=== PATIENT | female | born 1960 | race Caucasian/White ===

== ENCOUNTER 2017-03-28 13:51 | Emergency (ER) | payer OTHER ==
[~2017-03-28] VITALS: Ht 152.4 cm; Wt 56.2 kg
[~2017-03-28 13:51] MED LIST: DOCUSATE SODIU100 M3 PO; LEVOTHYROXINE100 MC1 PO; PERCOCET 5-3251 EACH PO; VALIUM5 M2 PO
--- NOTE | 2017-03-28 14:27 | ED UPPER/LOWER EXTREMITY COMPL ---
History of Present Illness General Chief Complaint: Lower Extremity Problems Stated Complaint: RIGHT LEG WOUND, ?INFECTION Source: patient, family Exam Limitations: no limitations Vital Signs & Intake/Output Vital Signs & Intake/Output Vital Signs Date Time Temp Pulse Resp B/P B/P Pulse O2 O2 Flow FiO2 Mean Ox Delivery Rate 03/28 1609 100.6 68 18 109/57 98 Room Air 03/28 1549 97 Room Air 03/28 1356 98.6 76 18 118/76 98 Room Air Allergies Coded Allergies: NO KNOWN ALLERGIES (09/03/16) Reconcile Medications Amoxicillin/Clavulanate Potass (Amox-Clav 875-125 MG Tablet) 875 MG-125 MG TABLET 1 TAB PO BID ANTIBIOTIC, INFECTION (Reported) Calcium Carbonate/Vitamin D3 (Caltrate 600 + D Tablet) 600 MG-800 TABLET 1 TAB PO DAILY SUPPLEMENT (Reported) Cholecalciferol (Vitamin D3) (Vitamin D) 1,000 UNIT TABLET 1 TAB PO DAILY VITAMIN SUPPORT (Reported) Levothyroxine Sodium 100 MCG TABLET 1 TAB PO QPM THYROID (Reported) Leonard-3 Fatty Acids/Fish Oil (Fish Oil 1,000 MG Capsule) 340 MG-1,000 MG CAPSULE 1 CAP PO DAILY SUPPLEMENT (Reported) Sulfamethoxazole/Trimethoprim (Sulfamethoxazole-Tmp Ds Tablet) 800 MG-160 MG TABLET 1 TAB PO BID ANTIBIOTIC, INFECTION (Reported) Triage Note: PT STATES SHE CUT HER RIGHT LOWER EXT. LAST WEEK AND STATES IT WAS FINE UNTIL THIS SATURDAY AND STATES IT BECAME SORE. PT PLACED ON AUGMENTIN YESTERDAY AND STATES SHE FEELS IT GOT WORSE. PT CHANGED TO [facility] AND TOOK HER FIRST DOSE 1/2 HOUR AGO. PT STATES SHE IS STILL RUNNING A TEMP. PT STATES HER PCP WAS GOING TO ORDER AN X-RAY BUT SHE CAME IN TO THE ER. Triage Nurses Notes Reviewed? yes Onset: Abrupt Duration: day(s): (3-4), constant, continues in ED, getting worse Timing: single episode today Severity: mild, moderate Severity Numbers: 7 Pain/Injury Location: Right: Leg. Method of Injury: unknown No Modifying Factors: none Associated Symptoms: swelling, redness LMP (ages 10-50): post menopausal : No Patient currently breastfeeds: No HPI: 56-year-old female with past medical history of hypothyroidism presents complaining of pain swelling and redness in the anterior right lower extremity. Patient reports possibly one week ago she was working in her garden and sustained a cut to the right lower anterior leg. She'll keep it clean and dry and applying topical anabiotic since felt it was getting better until 3 or 4 days ago. She started noticing redness swelling pain in the area. She saw her primary care doctor yesterday and was started on Augmentin and Bactrim. She took 2 doses of each but feels as though the redness is spreading and the wound is looking worse. Patient is concerned about a bone infection and that her primary doctor and ordered an x-ray but she wanted to get it done right away so she came to the emergency department. Patient reports pain in the area that is worse with any type of movement she rates it as a 7 out of 10. She does report some subjective signs of fever including chills and sweats. She is not taking any Tylenol or ibuprofen. No other associated symptoms. No history of diabetes. She is not immunocompromised. (JACINDA ZAZUETA PA-C) Past History Travel History Traveled to [place] past 21 day No Medical History Any Pertinent Medical History? see below for history Neurological: NONE EENT: NONE Cardiovascular: NONE Respiratory: NONE Gastrointestinal: NONE Hepatic: NONE Renal: NONE Musculoskeletal: osteoarthritis Psychiatric: NONE Endocrine: hypothyroidism Blood Disorders: NONE Cancer(s): breast cancer RIGGING UP WORKER/Reproductive: NONE History of MRSA: No History of VRE: No History of CDIFF: No Influenza Vaccine: 06/30/16 Surgical History Surgical History: RIGHT HIP REPLACEMENT Psychosocial History Who do you live with Spouse Services at Home None What is your primary language Telugu Tobacco Use: Never used ETOH Use: occasional use Illicit Drug Use: denies illicit drug use Family History Hx Contributory? No (JACINDA ZAZUETA PA-C) Review of Systems Review of Systems Constitutional: Reports: see HPI, chills, malaise. EENTM: Reports: no symptoms. Respiratory: Reports: no symptoms. Cardiovascular: Reports: no symptoms. Gastrointestinal/Abdominal: Reports: no symptoms. Genitourinary: Reports: no symptoms. Musculoskeletal: Reports: no symptoms. Skin: Reports: see HPI, lesions. Neurological/Psychological: Reports: no symptoms. Hematologic/Endocrine: Reports: no symptoms. Immunological: Reports: no symptoms. All Other Systems: Reviewed and Negative (JACINDA ZAZUETA PA-C) Physical Exam Physical Exam General Appearance: well developed/nourished, no apparent distress, alert, awake , anxious Head: atraumatic, normal appearance Eyes: Bilateral: normal appearance, PERRL, EOMI. Ears, Nose, Throat: normal pharynx, normal ENT inspection, hearing grossly normal Neck: normal inspection, supple, full range of motion Cardiovascular/Respiratory: normal breath sounds, normal peripheral pulses, regular rate/rhythm, no respiratory distress Peripheral Pulses: 2+ dorsalis pedis (R), 2+ dorsalis pedis (L) Back: normal inspection, normal range of motion, no vertebral tenderness Shoulder Left: normal range of motion, normal inspection Shoulder Right: normal range of motion, normal inspection Elbow Left: normal range of motion, normal inspection Elbow Right: normal range of motion, normal inspection Hand Left: normal inspection, normal range of motion Hand Right: normal inspection, normal range of motion Leg Left: normal range of motion, normal inspection Leg Right: normal range of motion, swelling, tenderness, pain, soft tissue tenderness, there is a 3 cm diameter oval shaped area of erythema surrounding a central linear 2 cm laceration. there is some purulent discharge coming from the laceration. No focal fluctuant areas. Neurovascular supply is intact. Hip Left: normal range of motion, normal inspection Hip Right: normal range of motion, normal inspection Knee Left: normal range of motion, normal inspection Knee Right: normal range of motion, normal inspection Foot Left: normal inspection, normal range of motion Foot Right: normal inspection, normal range of motion Lower Extremity Reflexes: 2+: knee (R), knee (L). Neurologic/Tendon: normal sensation, normal motor functions, normal tendon functions, responds to pain, no evidence tendon injury Skin: intact, normal color Lymphatic: no anterior cervical odette (BLACK PA-C,JACINDA) Progress Differential Diagnosis: arterial insufficiency, cellulitis, contusion, DVT, fracture, gout, septic arthritis, sprain, tendon injury, abscess Plan of Care: Orders Procedure Date/time Status COMPREHENSIVE METABOLIC PANEL 03/28 1434 Complete CBC WITHOUT DIFFERENTIAL 03/28 1434 Complete Laboratory Tests 03/28/17 1458: Anion Gap 9, Estimated GFR 58 L, BUN/Creatinine Ratio 13.0, Glucose 69, Calcium 9.4, Total Bilirubin 0.4, AST 23, ALT 36, Alkaline Phosphatase 55, Total Protein 6.8, Albumin 4.2, Globulin 2.6, Albumin/Globulin Ratio 1.6, CBC w Diff NO MAN DIFF REQ, RBC 3.99 L, MCV 91.5, MCH 31.1 H, RDW 14.1, MPV 9.9, Gran % 75.7 H, Lymphocytes % 14.7 L, Monocytes % 7.5, Eosinophils % 1.3, Basophils % 0.8, Absolute Granulocytes 4.1, Absolute Lymphocytes 0.8 L, Absolute Monocytes 0.4, Absolute Eosinophils 0.1, Absolute Basophils 0, PUBS MCHC 34.0 Patient will have an x-ray of the right tibia and fibula as requested by her primary care doctor. She'll also have basic blood work done. Will follow-up on results. 3:48 PM: Basic blood work is back and is within normal limits. No elevated white blood cell count. X-rays of the right lower extremity are within normal limits. Patient has remained afebrile and nontoxic appearing while in the emergency department. She's only been on antibiotics for one day. Reviewed all results with patient. Advised her to continue Augmentin and Bactrim as directed for the full course. Patient has a follow-up appointment with her primary care doctor tomorrow at 2 PM. Continue ibuprofen and Tylenol as needed for pain and change dressing once a day. Discussed signs of worsening infection. Discussed treatment plan with patient and she agrees the plan. She is afebrile and nontoxic appearing at discharge. (CARLITA DIAZ,JACINDA) Diagnostic Imaging: Viewed by Me: Radiology Read. Comments: PATIENT: REYNALDO GRAVES PRESENT AGE: 56 PATIENT ACCOUNT NO: [id number] : 62 LOCATION: [facility] ORDERING PHYSICIAN: JACINDA ZAZUETA PA-C SERVICE DATE: 03/28/17 EXAM TYPE: RAD - [id number], RIGHT EXAMINATION: XR TIBIA AND FIBULA, RIGHT CLINICAL INFORMATION: Cellulitis of the leg. COMPARISON: None TECHNIQUE: AP and lateral views of the right tibia and fibula were obtained. FINDINGS: The bones and soft tissues are normal. No fracture. No osseous lesions. IMPRESSION: Normal right tibia and fibula. DICTATED BY: KIANNA HERNDON MD DATE/TIME DICTATED:03/28/171520 [employer] BUS TRUCK:TIN DATE/TIME TRANSCRIBED:06/29/17 / 1521 CONFIDENTIAL, DO NOT COPY WITHOUT APPROPRIATE AUTHORIZATION. <Electronically signed in Other Vendor System> SIGNED BY: KIANNA HERNDON MD 1526 (JACINDA ZAZUETA PA-C) Departure Departure Disposition: HOME OR SELF CARE Condition: Stable Clinical Impression Primary Impression: Cellulitis and abscess of lower extremity Referrals: ANTOLIN LINCOLN,ALFONSO MÉNDEZ (PCP/Family) Additional Instructions: Continue to take Augmentin and Bactrim DS as directed for the full course. Take a probiotic to replace healthy bacteria. Continue to use Tylenol or ibuprofen as needed for pain or fevers. Change dressing once a day and do not apply any topical antibiotics. Follow-up with your primary care doctor tomorrow to review all results of today's visit and for a wound check. Return to the emergency department with any concerns. Please go over all results of today's visit with your primary care doctor. Contact your primary care doctor to let them know you were here in the emergency room. There may be nonspecific findings which may not be related to your visit today here in the emergency room but may require further evaluation and chronic monitoring by your primary care doctor. If you had a laceration today the chance of foreign body always remains. You should follow-up with your primary care doctor for recheck in 3-5 days for a wound check. If you had an x-ray done there is a chance that a fracture could have been missed on initial read and you should follow-up with your primary care doctor for repeat x-rays if symptoms persist. If your blood pressure was elevated here in the emergency room please have rechecked by her primary care doctor within the next 48 hours by your primary care doctor. If you were prescribed a narcotic here in the emergency room or any type of controlled substances you're not allowed to drive while taking this medication or operate any type of heavy machinery. Narcotics can make you feel lightheaded dizziness nausea and can cause constipation. You may need to picking machine operator helper a stool softener. Thank you for choosing [facility] emergency room. Please return to the emergency room immediately if you have any other concerns worsening of symptoms. Departure Forms: Customer Survey General Discharge Information (JACINDA ZAZUETA PA-C) PA/DEBURRING TECHNICIAN Co-Sign Statement Statement: ED Attending supervision documentation- [] I saw and evaluated the patient. I have also reviewed all the pertinent lab results and diagnostic results. I agree with the findings and the plan of care as documented in the PA's/DEBURRING TECHNICIAN's documentation. [X] I have reviewed the ED Record and agree with the PA's/DEBURRING TECHNICIAN's documentation. [] Additions or exceptions (if any) to the PAs/DEBURRING TECHNICIAN's note and plan are summarized below: [] (HAILEY LINCOLN,BA Wilson)
[2017-03-28] MEDS ORDERED: AMOX-CLAV 875-1 EACH PO (15:01)
[2017-03-28] MEDS ORDERED: VITAMIN D1000 UNIT PO (15:02)
[2017-03-28] MEDS ORDERED: SULFAMETHOXAZO1 EAC1 PO (15:02)
[2017-03-28] MEDS ORDERED: CALTRATE 600 +1 EACH PO (15:03)
[2017-03-28] MEDS ORDERED: FISH OIL 1,0001 EACH PO (15:03)
[2017-03-28 15:06] LABS: ABSOLUTE BASOPHIL COUNT 0 /CUMM (0.0-0.2); ABSOLUTE EOSINOPHIL COUNT 0.1 /CUMM (0.0-0.7); ABSOLUTE GRANULOCYTE CT 4.1 /CUMM (1.4-6.5); ABSOLUTE LYMPH COUNT 0.8 /CUMM (1.2-3.4); ABSOLUTE MONOCYTE COUNT 0.4 /CUMM (0.10-0.60); BASOPHIL % 0.8 % (0.0-2.0); EOSINOPHIL % 1.3 % (0-5); HEMATOCRIT 36.5 % (37-47); MEAN CORPUSCULAR HGB 31.1 PG (27.0-31.0); MEAN CORPUSCULAR VOLUME 91.5 FL (81.0-99.0); MEAN PLATELET VOLUME 9.9 FL (7.4-10.4); PLATELET COUNT 174 /CUMM (130-400); RBC DISTRIBUTION WIDTH 14.1 % (11.5-14.5); RED BLOOD CELL CT 3.99 /CUMM (4.20-5.40); WHITE BLOOD CELL COUNT 5.4 /CUMM (4.8-10.8)
[2017-03-28 15:08] LABS: GRANULOCYTE % 75.7 % (42.2-75.2)
--- NOTE | 2017-03-28 15:26 | RADIOLOGY REPORT ---
EXAMINATION: XR TIBIA AND FIBULA, RIGHT CLINICAL INFORMATION: Cellulitis of the leg. COMPARISON: None TECHNIQUE: AP and lateral views of the right tibia and fibula were obtained. FINDINGS: The bones and soft tissues are normal. No fracture. No osseous lesions. IMPRESSION: Normal right tibia and fibula.
[2017-03-28 16:09] VITALS: BP 109/57
== END 2017-03-28 16:12 ==
LOC: ERH 13:51
PROVIDERS: Physician Assistant Medical
DX: L03.115 Cellulitis of right lower limb (principal); L02.415 Cutaneous abscess of right lower limb
CPT/HCPCS: 73590-RT